=== PATIENT | female | born 1990 | race Hispanic/Latino ===

== ENCOUNTER 2019-10-14 10:21 | Outpatient (CLI) | payer OTHER ==
--- NOTE | 2019-10-14 13:16 | ULT ---
OB ULTRASOUND: HISTORY: anatomy. FINDINGS: A single live intrauterine gestation is seen with measurements corresponding to an estimated gestatio nal age of 20 weeks 6 days and JONATHAN of 02/25/2020. The estimated weight measures 377 gm or 13 oun jeremías. measurements are as follows: BPD 4.96 cm, 21 weeks 0 days. HC 18.67 cm, 21 weeks 0 days AC 16.00 cm, 21 weeks 1 day FL 3.30 cm, 20 weeks 2 days heart rate measures 147 b.p.m. DARREN measures 12.3 cm. Placenta is anteriorly located without e vidence of placenta previa. Cervical length measures 4.4 cm. A 3-vessel cord, cord insertion, kidneys, bladder, stomach, 4-chamber heart, lateral ventricles , cerebellum, spine, lips/nose, upper and lower extremities are visualized. No definite anomal ies are seen. IMPRESSION: Single live intrauterine of 20 weeks 6 days estimated gestational age and estimated date of delivery at 02/25/2020. POS: [facility]
== END 2019-10-14 10:22 | disposition home or self-care (01) ==
LOC: SCSULT 10:21
PROVIDERS: ATTEND Family Medicine
DX: Z34.82 Encounter for supervision of other normal pregnancy, second trimester (principal); Z3A.20 20 weeks gestation of pregnancy
CPT/HCPCS: 76805

== ENCOUNTER 2020-02-23 09:21 | Inpatient (IN) | payer MEDICAID, OTHER ==
[2020-02-23] MEDS ORDERED: Methylergonovine 0.2 MG/ML VIAL IM PRN (10:07)
[2020-02-23] MEDS ORDERED: hydrALAZINE 20 MG/ML VIAL SLOW IVP PRN ×2 (10:07→20:43)
[2020-02-23] MEDS ORDERED: Diphenoxylate HCl/Atropine Tablet PO PRN (10:07)
[2020-02-23] MEDS ORDERED: Butorphanol Tartrate 1 MG/ML VIAL SLOW IVP PRN (10:07)
[2020-02-23] MEDS ORDERED: Misoprostol 200 MCG TAB PR PRN (10:07)
[2020-02-23] MEDS ORDERED: HYDROcodone/Acetaminophen 5/325 mg Tablet PO PRN ×3 (10:07→20:43)
[2020-02-23] MEDS ORDERED: NS / Oxytocin 40 units/1000ml 1,000 ML IV PRN (10:07)
[2020-02-23] MEDS ORDERED: Ondansetron PF 4 MG/2 ML Vial IVP PRN ×3 (10:07→20:43)
[2020-02-23] MEDS ORDERED: Lidocaine 1% (PF) 30 ML VIAL SC PRN (10:07)
[2020-02-23] MEDS ORDERED: Promethazine HCl 25 MG/ML VIAL IM PRN ×2 (10:07→13:04)
[2020-02-23] MEDS ORDERED: Ibuprofen 800 MG TAB PO PRN (10:07)
[2020-02-23] MEDS ORDERED: Carboprost 250 MCG/ML AMP IM PRN (10:07)
[2020-02-23] MEDS ORDERED: NS w/ Oxytocin 10 units 500 ML IV SCH ×2 (10:15)
[2020-02-23 10:19] LABS: Hemoglobin 12.8 g/dL (12.0-16.0); Mean Corpuscular HGB CONC 33.7 g/dL (32.0-36.0); Mean Corpuscular Hemoglobin 30.8 pg (27.0-31.0); Mean Corpuscular Volume 91.3 fL (78.0-98.0); Mean Platelet Volume 10.4 fL (7.4-10.4); Platelet Count 136 thou/uL (130-400); RBC Distribution Width 12.9 % (11.5-14.5); Red Blood Cell (RBC) Count 4.15 mill/uL (4.20-5.40); White Blood Cell (WBC) Count 6.1 thou/uL (4.8-10.8)
[2020-02-23 10:29] VITALS: BMI 25.4
[2020-02-23] MEDS ORDERED: Fentanyl 4 mcg/Bup 0.1% Cadd 100 ML ONE (10:55)
[2020-02-23 10:57] LABS: Hep B Surf Ag Non-Reactive S/CO (NonReactive); Syphilis Antibody Nonreactive (Nonreactive); Syphilis Antibody Index 0.02 S/CO (<1.00 Non-Reactive)
[2020-02-23] MEDS: Lactated Ringer's 1,000 ML IV SCH ×2 (12:53→12:54)
[2020-02-23] MEDS ORDERED: Lactated Ringer's 500 ML IV PRN (13:04)
[2020-02-23] MEDS ORDERED: Acetaminophen 325 MG TAB PO PRN (13:04)
[2020-02-23] MEDS ORDERED: EPHEDRINE 25 MG/5 ML SYRINGE SLOW IVP PRN (13:04)
[2020-02-23] MEDS ORDERED: Naloxone HCl 0.4 mg/ml Vial IVP PRN ×2 (13:04)
[2020-02-23] MEDS ORDERED: diphenhydrAMINE 50 MG/ML VIAL IVP PRN (13:04)
[2020-02-23] MEDS ORDERED: Communication Order-Pharmacy FS PRN (13:15)
[2020-02-23] MEDS ORDERED: Fentanyl 4 mcg/Bupivacaine 0.1% Cassette 100 ML EPIDURAL SCH (13:15)
[2020-02-23 18:11] LABS: SARS-CoV-2 MS2 Positive; SARS-CoV-2 N Gene Negative; SARS-CoV-2 S Gene Negative; SARS-CoV-2 by NAA Not Detected (NotDetected); SARS-CoV-2 orf1ab Negative
[2020-02-23] MEDS ORDERED: Bisacodyl 10 MG SUPP PR PRN (20:43)
[2020-02-23] MEDS ORDERED: diphenhydrAMINE 25 MG CAP PO PRN (20:43)
[2020-02-23] MEDS ORDERED: Milk Of Magnesia 30 ML UDCUP PO PRN (20:43)
[2020-02-23] MEDS ORDERED: Lanolin Ointment 7 GM TUBE TOP PRN (20:43)
[2020-02-23] MEDS ORDERED: NS / Oxytocin 40 units/1000ml 1,000 ML IV SCH (21:00)
[2020-02-23] MEDS: Ibuprofen 800 MG TAB PO SCH (21:56)
[2020-02-23] MEDS: Docusate Calcium (SURFAK) 240 MG CAP PO SCH (21:56)
[2020-02-24] MEDS: Ibuprofen 800 MG TAB PO SCH ×2 (05:57→13:38)
[2020-02-24] MEDS ORDERED: Adacel (T-DAP) 0.5 ML SYRINGE IM ONE (09:00)
[2020-02-24] MEDS ORDERED: Prenatal Vitamin 1 TAB PO SCH (09:00)
[2020-02-24] MEDS: Ferrous Sulfate 325 MG TAB PO SCH ×2 (10:02→18:13)
[2020-02-24] MEDS: Docusate Calcium (SURFAK) 240 MG CAP PO SCH (10:02)
[2020-02-24 12:04] VITALS: BP 88/50; TEMP 98.4
== END 2020-02-24 19:45 | disposition home or self-care (01) | DRG 807 ==
LOC: L&D 09:21 → 3SW 20:37
PROVIDERS: ADMIT Family Medicine; ATTEND Family Medicine
PROC: 10E0XZZ Delivery of Products of Conception, External Approach (ICD-10-PCS; principal; 2020-02-23)
PROC: 0KQM0ZZ Repair Perineum Muscle, Open Approach (ICD-10-PCS; 2020-02-23)
PROC: 0UQMXZZ Repair Vulva, External Approach (ICD-10-PCS; 2020-02-23)
PROC: 10907ZC Drainage of Amniotic Fluid, Therapeutic from Products of Conception, Via Natural or Artificial Opening (ICD-10-PCS; 2020-02-23)
PROC: 3E033VJ Introduction of Other Hormone into Peripheral Vein, Percutaneous Approach (ICD-10-PCS; 2020-02-23)
DX: O48.0 Post-term pregnancy (principal); Z37.0 Single live birth; O70.1 Second degree perineal laceration during delivery; Z20.828 Contact with and (suspected) exposure to other viral communicable diseases; Z3A.40 40 weeks gestation of pregnancy
CPT/HCPCS: 36415; 51702; 85027; 86780; 86850; 86900; 86901; 87340; 87635; J2590; U0003